=== PATIENT | female | born 1980 | race Caucasian/White ===

== ENCOUNTER 2016-12-01 14:12 | Emergency (ER) | payer BC ==
[2016-12-01 14:27] VITALS: RESP 18
[2016-12-01 15:16] VITALS: O2SAT 98
[2016-12-01 15:37] LABS: RBC URINE 2 /hpf (0-3); URINE BILIRUBIN NEGATIVE (NEGATIVE); URINE BLOOD NEGATIVE (NEGATIVE); URINE COLOR Yellow (YELLOW); URINE GLUCOSE (UA) NORMAL (Normal); URINE KETONE NEGATIVE (NEGATIVE); URINE LEUKOCYTE ESTERASE NEG Leu/uL (Negative); URINE PROTEIN NEGATIVE (NEGATIVE); URINE UROBILINOGEN NORMAL mg/dL (0.2-1.0); WBC URINE 1 /hpf (0-5)
[2016-12-01] MEDS ORDERED: Sodium Chloride 0.9% 1,000 ML IV STA (15:45)
[2016-12-01] MEDS ORDERED: Sodium Chloride 0.9% 1,000 ML ONE (16:08)
--- NOTE | 2016-12-01 16:30 | CT ---
PROCEDURE: CT HEAD WITHOUT CONTRAST. HISTORY: ANGULO, blurred vision after getting depo lupron injec COMPARISON: None available. TECHNIQUE: Axial computed tomography images were obtained through the head/brain without intravenous contrast. Radiation dose: Total exam DLP = 675 mGy-cm. FINDINGS: HEMORRHAGE: No intracranial hemorrhage. BRAIN: No mass effect or edema. No atrophy or chronic microvascular ischemic changes. VENTRICLES: Unremarkable. No hydrocephalus. CALVARIUM: Unremarkable. PARANASAL SINUSES: Unremarkable as visualized. No significant inflammatory changes. MASTOID AIR CELLS: Unremarkable as visualized. No inflammatory changes. OTHER FINDINGS: None. IMPRESSION: Normal CT of the Head.
[2016-12-01 16:39] LABS: BASO % 0.7 % (0.0-2.0); EOS # 0.2 K/uL (0.0-0.7); EOS % 3.5 % (0.0-4.0); HEMATOCRIT 41.9 % (34.0-47.0); LYMPH # 2.9 K/uL (1.0-4.3); LYMPH % 44.6 % (20.0-40.0); MEAN CORPUSCULAR HEMOGLOBIN 26.2 pg (27.0-31.0); MEAN CORPUSCULAR HGB CONC 32.4 g/dL (33.0-37.0); MEAN PLATELET VOLUME 7.9 fL (7.2-11.7); MONO # 0.4 K/uL (0.0-0.8); MONO % 6.4 % (0.0-10.0); NRBC % 0.1 % (0.0-2.0); RED CELL DISTRIBUTION WIDTH 13.5 % (11.5-14.5); WHITE BLOOD COUNT 6.5 K/uL (4.8-10.8)
--- NOTE | 2016-12-01 16:54 | C.PDOC ---
History Of Present Illness <Katy Peterson - Last Filed: 12/01/16 18:24> <Tahira Richardson - Last Filed: 12/01/16 20:58> 36 y/o female presents to the emergency department complaining of occipital headache and blurred vision x 1 week. She reports that 2 weeks prior she had a depot lupron injection. 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 Patient notes that she called her table worker who suggested she come to the emergency department for evaluation. Patient denies fever, chills, chest pain, shortness of breath, dizziness, or other complaints. (Katy Peterson) History Per: Patient History/Exam Limitations: no limitations Onset/Duration Of Symptoms: Days (7), Persistent Current Symptoms Are (Timing): Still Present Associated Symptoms: Blurred Vision Recent travel outside of the [place]: No <Katy Peterson - Last Filed: 12/01/16 18:24> <Tahira Richardson - Last Filed: 12/01/16 20:58> Time Seen by Provider: 12/01/16 15:19 Chief Complaint (Nursing): Headache Past Medical History Reviewed: Historical Data, Nursing Documentation, Vital Signs - Medical History PMH: Hypothyroidism Surgical History: No Surg Hx Family History: States: No Known Family Hx - Social History Hx Tobacco Use: No Hx Alcohol Use: Yes Hx Substance Use: No <Katy Peterson - Last Filed: 12/01/16 18:24> Vital Signs: Last Vital Signs Temp 98.2 F 12/01/16 20:46 Pulse 90 12/01/16 20:46 Resp 18 12/01/16 20:46 BP 114/81 12/01/16 20:46 Pulse Ox 98 12/01/16 20:46 Review Of Systems Except As Marked, All Systems Reviewed And Found Negative. Constitutional: Negative for: Fever, Chills Eyes: Positive for: Vision Change (blurred vision) Cardiovascular: Negative for: Chest Pain Respiratory: Negative for: Shortness of Breath Neurological: Positive for: Headache (occipital). Negative for: Dizziness <Katy Peterson - Last Filed: 12/01/16 18:24> Physical Exam - Physical Exam Appears: Non-toxic, No Acute Distress Skin: Normal Color, Warm, Dry, No Rash Head: Atraumatic, Normacephalic Eye(s): bilateral: Normal Inspection, PERRL, EOMI Neck: Normal ROM, No Midline Cervical Tenderness, Supple Chest: Symmetrical Cardiovascular: Rhythm Regular Respiratory: Normal Breath Sounds, No Rales, No Rhonchi, No Wheezing Gastrointestinal/Abdominal: Normal Exam, Soft, No Tenderness Back: Normal Inspection Extremity: Normal ROM, No Swelling Neurological/Psych: Oriented x3, Normal Speech, Normal Cognition <Katy Peterson - Last Filed: 12/01/16 18:24> ED Course And Treatment - Laboratory Results Result Diagrams: 12/01/16 16:34 12/01/16 16:34 O2 Sat by Pulse Oximetry: 98 (ra) Pulse Ox Interpretation: Normal - CT Scan/US CT Head Other Rad Studies (CT/US): Read By Radiologist, Radiology Report Reviewed CT/US Interpretation: Accession No. : [id number]. Patient Name / ID : ALEX OLSEN / [id number]. Exam Date : 12/01/2016 16:15:51 ( Approved ). Study Comment : Sex / Age : F / 36Y. Creator : Oren Aguero MD. Dictator : Oren Aguero MD. Electrical Engineering Drafting Officer : Information Technology Administrator : Oren Aguero MD. Approver2 : Report Date : 12/01/2016 16:28:59. My Comment : . PROCEDURE: CT HEAD WITHOUT CONTRAST. HISTORY: ANGULO, blurred vision after getting depo lupron injec. COMPARISON: None available. TECHNIQUE: Axial computed tomography images were obtained through the head/brain without intravenous contrast. Radiation dose: Total exam DLP = 675 mGy-cm. FINDINGS: HEMORRHAGE: No intracranial hemorrhage. BRAIN: No mass effect or edema. No atrophy or chronic microvascular ischemic changes. VENTRICLES: Unremarkable. No hydrocephalus. CALVARIUM: Unremarkable. PARANASAL SINUSES: Unremarkable as visualized. No significant inflammatory changes. MASTOID AIR CELLS: Unremarkable as visualized. No inflammatory changes. OTHER FINDINGS: None. IMPRESSION: Normal CT of the Head. Progress Note: Case discussed with Dr. Salamanca who instructed CT scan and basic labs. Also states he is not administration vice president today and to speak with the neurologist administration vice president when results come back. CT Head, Blood Work, Urinalysis, and U-Preg were ordered. Patient treated with Reglan IV, Toradol IVP, and IV Fluids. Case discussed with neurologist administration vice president Dr. Guilherme Walter who requests MRI and MRA of the head and neck, Decadron 10 mg IVP, and Magnesium Sulfate 2 grams IV; states he will come see the patient in the ER. MRI and MRA of the neck and head were ordered. Patient given Xanax PO. Patient came back to Ed refusing MRI/MRA stating she is severely claustrophobic. Case was d/w who requested CTA head and neck and wants to be contacted with the result. <Katy Peterson - Last Filed: 12/01/16 18:24> - Laboratory Results Result Diagrams: 12/01/16 16:34 12/01/16 16:34 O2 Sat by Pulse Oximetry: 98 Pulse Ox Interpretation: Normal Progress Note: spoke with dr walter with the negative cta head and neck. Ok to dc <Tahira Richardson - Last Filed: 12/01/16 20:58> Medical Decision Making <Katy Peterson - Last Filed: 12/01/16 18:24> <Tahira Richardson - Last Filed: 12/01/16 20:58> Medical Decision Making: Upon provider reevaluation patient is feeling better, is medically stable, and requires no further treatment in the ED at this time. Patient will be discharged home . Counseling was provided and all questions were answered regarding diagnosis and need for follow up with the referred clinic. There is agreement to discharge plan. Return if symptoms persist or worsen. (Tahira Richardson ) Disposition - Disposition Disposition Time: 19:00 <Katy Peterson - Last Filed: 12/01/16 18:24> Counseled Patient/Family Regarding: Studies Performed, Diagnosis, Need For Followup - Disposition Disposition Time: 19:00 <Tahira Richardson - Last Filed: 12/01/16 20:58> - Disposition Referrals: Guilherme Walter MD [Staff Provider] - Condition: IMPROVED Additional Instructions: Will need to follow up with the table worker to adjust hormone levels Instructions: Acute Headache (DC) - Clinical Impression Clinical Impression: Headache - PA / RELIGIOUS LEADER / Resident Statement MD/DO has reviewed & agrees with the documentation as recorded. - Scribe Statement The provider has reviewed the documentation as recorded by the Scribe (Corinna Ward) <Katy Peterson - Last Filed: 12/01/16 18:24> <Tahira Richardson - Last Filed: 12/01/16 20:58> - Scribe Statement All medical record entries made by the Scribe were at my direction and personally dictated by me. I have reviewed the chart and agree that the record accurately reflects my personal performance of the history, physical exam, medical decision making, and the department course for this patient. I have also personally directed, reviewed, and agree with the discharge instructions and disposition. (Katy Peterson) Physician Patient Turnover Patient Signed Over To: Tahira Richardson Handoff Comments: Follow up CTA head and neck results. Please contact Neurologist administration vice president Dr.Dani Walter (tel [phone]) with the results. <Katy Peterson - Last Filed: 12/01/16 18:24>
[2016-12-01 16:58] LABS: CHLORIDE 99 mmol/L (98-107); SODIUM 139 mmol/L (132-148)
[2016-12-01 16:59] LABS: POTASSIUM 3.7 mmol/L (3.6-5.2)
[2016-12-01 17:01] LABS: ALB/GLOB RATIO 1.1 (1.0-2.1); ALKALINE PHOSPHATASE 92 U/L (38-126); ALT/SGPT 36 U/L (9-52); AST/SGOT 32 U/L (14-36); BILIRUBIN,TOTAL 0.3 mg/dL (0.2-1.3); BLOOD UREA NITROGEN 11 mg/dL (7-17); CARBON DIOXIDE 26 mmol/L (22-30); GFR AFRICAN-AMERICAN > 60; GLUCOSE,RANDOM 79 mg/dL (65-105); TOTAL PROTEIN 8.3 g/dL (6.3-8.3)
[2016-12-01] MEDS ORDERED: Dexamethasone 4 mg/1 ml IVP STA (17:36)
[2016-12-01] MEDS ORDERED: Dexamethasone 4 mg/1 ml ONE (18:26)
[2016-12-01] MEDS ORDERED: Iodixanol 320 MG/ML 100 ML BOTTLE IV ONE (19:25)
[2016-12-01 20:47] VITALS: BP 114/81; PULSE 90; TEMP 98.2
--- NOTE | 2016-12-02 09:03 | CT ---
PROCEDURE: CT Angiography of the neck with contrast HISTORY: severe ANGULO after depo lupron injection COMPARISON: None available. TECHNIQUE: Contiguous axial images of the neck were obtained from the level of the skull-base to the superior mediastinum in the arteriographic phase of enhancement. Coronal and sagittal reformats or also generated. Coronal and sagittal MIPS images of the carotid arteries at the neck were also obtained . 3D images of the carotid arteries at the neck were processed in separate workstation and submitted for evaluation. This CT exam was performed using one or more of the following dose reduction techniques: Automated exposure control, adjustment of the mA and/or kV according to patient size, and/or use of iterative reconstruction technique. IV contrast dose: 100 mL of Visipaque 320 Radiation Dose - DLP: 632.99 mGy-cm FINDINGS: RIGHT CAROTID ARTERIES: Common Carotid Artery: Normal. Carotid Bifurcation: Normal. Internal Carotid Artery:Normal. External Carotid Artery (proximal branches): Normal. LEFT CAROTID ARTERIES: Common Carotid Artery: Normal. Carotid Bifurcation: Normal. Internal Carotid Artery:Normal. External Carotid Artery (proximal branches): Normal. VERTEBRAL ARTERIES: Right Vertebral Artery: Normal. Left Vertebral Artery: Normal. OTHER FINDINGS: None. IMPRESSION: No CTA evidence of significant stenosis or occlusion in the carotid arteries and vertebral arteries at the neck. No evidence of acute pathology in the soft tissue of the neck. Mucosal retention cyst versus polyp at the left maxillary sinus noted. Preliminary report was submitted by [facility].
--- NOTE | 2016-12-02 11:16 | CP.PCM.CON ---
History of Present Illness - History of Present Illness History of Present Illness: Ms. Valle is a 36-year-old woman who presented to the ED with complaints of headaches that have been ongoing for the last two weeks. They seem to be increasing in severity and occur mostly in the occipital region on the left side , radiate to the front and are associated with blurry vision. At their worst, the headaches are 8/10 in severity. She had a Lupron (leuprolide) depot placed about one month ago and states that these symptoms have started since then. When I saw the patient, she stated that the medications she received in the ED were helping and her headache was improving. I recommended that we obtain an MRI/MRA/MRV since there was concern for estrogen withdrawal and possible RCVS. She refused the MRI due to severe clausterphobia. So, we ordered a CTA of the head/neck to rule out vascular pathology. This was read as negative and the patient was discharged home to follow up as an outpatient. Review of Systems - Review of Systems All systems: reviewed and no additional remarkable complaints except - Constitutional Constitutional: As Per HPI - EENT Eyes: As Per HPI Nose/Mouth/Throat: As Per HPI - Cardiovascular Cardiovascular: As Per HPI - Musculoskeletal Musculoskeletal: As Per HPI - Neurological Neurological: As Per HPI Past Patient History - Past Social History Smoking Status: Never Smoked - ENDOCRINE/METABOLIC Hx Hypothyroidism: Yes - PSYCHIATRIC Hx Substance Use: No Meds Allergies/Adverse Reactions: Allergies Allergy/AdvReac Type Severity Reaction Status Date / Time No Known Allergies Allergy Verified 12/01/16 15:16 Physical Exam - Constitutional Appears: Well - Head Exam Head Exam: ATRAUMATIC, NORMAL INSPECTION, NORMOCEPHALIC - Eye Exam Eye Exam: Conjunctival injection - Respiratory Exam Respiratory Exam: Clear to Auscultation Bilateral, NORMAL BREATHING PATTERN - Cardiovascular Exam Cardiovascular Exam: REGULAR RHYTHM - GI/Abdominal Exam GI & Abdominal Exam: Normal Bowel Sounds, Soft. absent: Tenderness - Neurological Exam Neurological exam: Alert, CN II-XII Intact, Normal Gait, Oriented x3, Reflexes Normal - Expanded Neurological Exam Expanded Patient oriented to: person, place, time Cranial nerves: EOM's Intact: Normal, Facial Palsey w/Forehead Movement: Normal , Facial Palsey w/o Forehead Movement: Normal, Facial Sensation: Normal, Gag Reflex: Normal, Nystagmus: Normal, Tongue Deviation: Normal Cerebellar Function: Finger to Nose: Normal, Heel to Rodriguez: Normal, Romberg: Normal Upper motor neuron: Babinski Sign: Normal Sensory exam: Lower Extremity Light Touch: Normal, Upper Extremity Light Touch: Normal Neuro motor strength exam: Left Upper Extremity: 5, Right Upper Extremity: 5, Left Lower Extremity: 5, Right Lower Extremity: 5 DTR: Achilles Tendon Left: 2+, Achilles Tendon Right: 2+, Bicep Left: 2+, Bicep Right: 2+, Brachioradialis Left: 2+, Brachioradialis Right: 2+, Patellar Left: 2 +, Patellar Right: 2+, Tricep Left: 2+, Tricep Right: 2+ Results - Vital Signs Recent Vital Signs: Last Vital Signs Temp 98.2 F 12/01/16 20:46 Pulse 90 12/01/16 20:46 Resp 18 12/01/16 20:46 BP 114/81 12/01/16 20:46 Pulse Ox 98 12/01/16 20:58 - Labs Result Diagrams: 12/01/16 16:34 12/01/16 16:34 Labs: Laboratory Results - last 24 hr 12/01/16 12/01/16 15:26 16:34 WBC 6.5 RBC 5.18 Hgb 13.6 Hct 41.9 MCV 81.0 MCH 26.2 L MCHC 32.4 L RDW 13.5 Plt Count 324 MPV 7.9 Neut % (Auto) 44.8 L Lymph % (Auto) 44.6 H Morton % (Auto) 6.4 Eos % (Auto) 3.5 Baso % (Auto) 0.7 Neut # 2.9 Lymph # 2.9 Morton # 0.4 Eos # 0.2 Baso # 0.0 Sodium 139 Potassium 3.7 Chloride 99 Carbon Dioxide 26 Anion Gap 18 BUN 11 Creatinine 0.8 Est GFR ( Amer) > 60 Est GFR (Non-Af Amer) > 60 Random Glucose 79 Calcium 9.0 Total Bilirubin 0.3 AST 32 ALT 36 Alkaline Phosphatase 92 Total Protein 8.3 Albumin 4.4 Globulin 3.9 Albumin/Globulin Ratio 1.1 Urine Color Yellow Urine Clarity Clear Urine pH 6.0 Ur Specific [place] 1.013 Urine Protein Negative Urine Glucose (UA) Normal Urine Ketones Negative Urine Blood Negative Urine Nitrate Negative Urine Bilirubin Negative Urine Urobilinogen Normal Ur Leukocyte Esterase Neg Urine WBC (Auto) 1 Urine RBC (Auto) 2 Ur Squamous Epith Cells < 1 Urine HCG, Qual Negative - Imaging and Cardiology CT scan - head Status: Image reviewed by me, Report reviewed by me (Normal) Assessment & Plan (1) Headache Status: Acute - Assessment and Plan (Free Text) Assessment: 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 Plan: Continue magnesium oxide 400 mg BID (OTC). Follow up with [facility] for management of hormonal levels and medications.
--- NOTE | 2016-12-06 10:48 | CT ---
PROCEDURE: CT Angiography of the Brain. HISTORY: COMPARISON: None available. TECHNIQUE: CT angiography of the intracranial arteries was performed. Coronal and sagittal maximum intensity projection reformated images were generated. 3D images of the intracranial arteries/[place] were also obtained. This CT exam was performed using one or more of the following dose reduction techniques: Automated exposure control, adjustment of the mA and/or kV according to patient size, and/or use of iterative reconstruction technique. FINDINGS: INTERNAL CEREBRAL ARTERIES: Unremarkable. The skull base, petrous, cavernous and supraclinoid segments are bilaterally widely patient. ANTERIOR CEREBRAL ARTERIES: Unremarkable. A1 and A2 segments are widely patent. Smaller distal branches unremarkable, as visualized. MIDDLE CEREBRAL ARTERIES: Unremarkable. M1 and M2 segments are widely patent. Perisylvian branches grossly symmetric. POSTERIOR CIRCULATION: Basilar Artery: Unremarkable. Distal Vertebral Arteries: Unremarkable. Posterior Cerebral Arteries: Unremarkable. Posterior Inferior Cerebellar Arteries: Unremarkable. ANEURYSM/ VASCULAR MALFORMATIONS: None. OTHER FINDINGS: None. IMPRESSION: No evidence of significant stenosis or occlusion in the visualized intracranial arteries. Preliminary report was submitted by [facility].
== END 2016-12-01 21:03 | disposition home or self-care (01) ==
LOC: C.ER 14:12
DX: R51 Headache (principal)
CPT/HCPCS: 70450; 70496; 70498; 80053; 81001; 84703; 85025; 96361; 96365; 96375; 99285; J1100; J1885; J2765; J3475; J7040; Q9967